=== PATIENT | female | born 1960 | race Caucasian/White ===

== ENCOUNTER 2016-09-16 17:32 | Emergency (ER) | payer MEDICARE ==
[2012-02-07 08:58] VITALS: BMI 37.2
[2016-09-16 18:20] LABS: HEMATOCRIT 39.6 % (36.0-48.0); HEMOGLOBIN 13.1 g/dL (12-16); MCH 30.7 pg (26.0-34.0); MCHC 33.1 g/dL (31.0-37.0); MCV 92.7 fL (80.0-100.0); MEAN PLATELET VOLUME 10.6 fL (7.4-10.4); PLATELET COUNT 342 10x3/uL (130-400); RBC 4.27 10x6/uL (4.00-5.40); RDW 16.1 % (11.5-14.5); WBC 39.2 10x3/uL (4.8-10.8)
[2016-09-16 18:34] LABS: ALBUMIN 3.2 g/dL (3.4-5.0); ALKALINE PHOSPHATASE 78 U/L (46-116); ALT (SGPT) 46 U/L (10-68); AMYLASE - SERUM 32 U/L (25-115); BILIRUBIN - TOTAL 0.51 mg/dL (0.2-1.3); CALC OSMOLALITY 284 mosm/kg (275-300); CARBON DIOXIDE 27.2 mmol/L (21.0-32.0); CHLORIDE - SERUM 107 mmol/L (98-107); CREATININE - SERUM 0.8 mg/dL (0.6-1.3); GLUCOSE 107 mg/dL (74-106); LIPASE 58 U/L (73-393); POTASSIUM - SERUM 3.6 mmol/L (3.5-5.1); PROTEIN - SERUM 6.3 g/dL (6.4-8.2); SODIUM 143 mmol/L (136-145); UREA NITROGEN 13 mg/dL (7-18); eGFR NON AFRICAN AMERICAN 78 mL/min (90-120)
[2016-09-16 18:36] LABS: CALCIUM 8.7 mg/dL (8.5-10.1)
[2016-09-16 18:45] LABS: LYMPHOCYTES 4 % (15-50); NEUTROPHILS 93 % (40-80); PLATELET ESTIMATE NORMAL
== END 2016-09-16 20:30 | disposition home or self-care (01) ==
LOC: D.ER 17:32
PROVIDERS: Emergency Medicine
DX: R11.2 Nausea with vomiting, unspecified (principal); Z76.89 Persons encountering health services in other specified circumstances; C79.9 Secondary malignant neoplasm of unspecified site; C50.919 Malignant neoplasm of unspecified site of unspecified female breast

== ENCOUNTER → 2017-11-19 09:07 | Outpatient (CLI) | payer OTHER ==
[2012-02-07 08:58] VITALS: BMI 37.2
== END | disposition home or self-care (01) ==
LOC: D.CT 09:07
DX: C50.411 Malignant neoplasm of upper-outer quadrant of right female breast (principal)

== ENCOUNTER 2018-01-10 19:38 | Emergency (ER) | payer OTHER ==
[2012-02-07 08:58] VITALS: BMI 37.2
[2018-01-10 20:05] LABS: BASOPHILS 0.2 % (0-2); EOSINOPHILS 1.1 % (0-7); HEMATOCRIT 41.3 % (36.0-48.0); HEMOGLOBIN 14.6 g/dL (12-16); IMMATURE GRANULOCYTES 0.2 % (0-5); LYMPHOCYTES 33.2 % (15-50); MCH 31.9 pg (26.0-34.0); MCHC 35.4 g/dL (31.0-37.0); MCV 90.2 fL (80.0-100.0); MEAN PLATELET VOLUME 10.1 fL (7.4-10.4); MONOCYTES 4.8 % (2-11); NEUTROPHILS 60.5 % (40-80); RBC 4.58 10x6/uL (4.00-5.40); RDW 15.1 % (11.5-14.5); WBC 12.2 10x3/uL (4.8-10.8)
[2018-01-10 20:08] LABS: PLATELET COUNT 234 10x3/uL (130-400)
[2018-01-10 20:34] LABS: ALBUMIN 3.4 g/dL (3.4-5.0); ALKALINE PHOSPHATASE 91 U/L (46-116); ALT (SGPT) 22 U/L (10-68); CALC OSMOLALITY 285 mosm/kg (275-300); CALCIUM 9.4 mg/dL (8.5-10.1); CARBON DIOXIDE 27.1 mmol/L (21.0-32.0); CHLORIDE - SERUM 107 mmol/L (98-107); CREATININE - SERUM 0.8 mg/dL (0.6-1.3); GLUCOSE 111 mg/dL (74-106); POTASSIUM - SERUM 3.7 mmol/L (3.5-5.1); PROTEIN - SERUM 6.7 g/dL (6.4-8.2); SODIUM 142 mmol/L (136-145); UREA NITROGEN 17 mg/dL (7-18); eGFR NON AFRICAN AMERICAN 78 mL/min (90-120)
[2018-01-10 20:45] LABS: APTT 29.4 SECONDS (22.8-39.4); CKMB 0.8 U/L (0.0-3.6); CREATINE KINASE 43 UL (21-215); INR 0.99 (0.85-1.17); PROTIME 12.7 SECONDS (11.6-15.0); TROPONIN-I < 0.017 ng/mL (0.000-0.060)
[2018-01-10 20:46] LABS: D-DIMER-QUANTITATIVE 0.46 ug/mLFEU (0.20-0.54)
== END 2018-01-10 23:29 | disposition home or self-care (01) ==
LOC: D.ER 19:38
PROVIDERS: Family Medicine
DX: J02.9 Acute pharyngitis, unspecified (principal); M79.1 Myalgia; Z85.3 Personal history of malignant neoplasm of breast

== ENCOUNTER → 2018-04-05 11:13 | Outpatient (CLI) | payer OTHER ==
[2012-02-07 08:58] VITALS: BMI 37.2
== END | disposition home or self-care (01) ==
LOC: D.US 11:13
DX: R10.9 Unspecified abdominal pain (principal); N39.0 Urinary tract infection, site not specified

== ENCOUNTER → 2018-11-18 08:14 | Outpatient (CLI) | payer OTHER ==
[2012-02-07 08:58] VITALS: BMI 37.2
== END | disposition home or self-care (01) ==
LOC: D.CT 07-22 12:00
PROVIDERS: ATTEND Legal Medicine
DX: C50.411 Malignant neoplasm of upper-outer quadrant of right female breast (principal)

== ENCOUNTER 2020-01-20 20:48 | Emergency (ER) | payer OTHER ==
[~2020-01-20] VITALS: Ht 157.5 cm; Wt 102.3 kg
[2020-01-20 21:00] VITALS: Ht 157.5 cm; Wt 102.3 kg
[2020-01-20] MEDS ORDERED: ZYRTEC10 MG PO (21:01)
[2020-01-20] MEDS ORDERED: FLUTICASONE PRO16 GM NASAL (21:02)
[2020-01-20 22:17] LABS: BASOPHILS 0.1 % (0-2); EOSINOPHILS 0.2 % (0-7); HEMATOCRIT 45.6 % (36.0-48.0); HEMOGLOBIN 14.9 g/dL (12-16); IMMATURE GRANULOCYTES 0.4 % (0-5); LYMPHOCYTES 9.2 % (15-50); MCHC 32.7 g/dL (31.0-37.0); MCV 91.9 fL (80.0-100.0); MEAN PLATELET VOLUME 9.6 fL (7.4-10.4); MONOCYTES 0.5 % (2-11); NEUTROPHILS 89.6 % (40-80); PLATELET COUNT 251 10x3/uL (130-400); RBC 4.96 10x6/uL (4.00-5.40); RDW 14.7 % (11.5-14.5); WBC 11.1 10x3/uL (4.8-10.8)
[2020-01-20 22:26] LABS: APTT 26.5 SECONDS (22.8-39.4); INR 0.99 (0.85-1.17)
[2020-01-20 22:28] LABS: CALC OSMOLALITY 282 mosm/kg (275-300); CALCIUM 8.9 mg/dL (8.5-10.1); CARBON DIOXIDE 28.4 mmol/L (21.0-32.0); CHLORIDE - SERUM 105 mmol/L (98-107); GLUCOSE 112 mg/dL (74-106); POTASSIUM - SERUM 3.7 mmol/L (3.5-5.1); SODIUM 141 mmol/L (136-145); UREA NITROGEN 15 mg/dL (7-18); eGFR NON AFRICAN AMERICAN 60 mL/min (90-120)
[2020-01-20 22:44] LABS: ALBUMIN 3.6 g/dL (3.4-5.0); ALKALINE PHOSPHATASE 98 U/L (30-120); ALT (SGPT) 28 U/L (10-68); AMYLASE - SERUM 55 U/L (25-115); BILIRUBIN - TOTAL 0.21 mg/dL (0.2-1.3); CKMB 0.4 U/L (0.0-3.6); CREATINE KINASE 55 UL (21-215); LIPASE 105 U/L (73-393); PRO BNP 35 pg/mL (0-125); PROTEIN - SERUM 6.9 g/dL (6.4-8.2)
[2020-01-20 22:45] LABS: TROPONIN-I < 0.017 ng/mL (0.000-0.060)
[2020-01-20 23:41] LABS: BACTERIA FEW /hpf (NEGATIVE); BILIRUBIN NEGATIVE (NEGATIVE); EPITHELIAL CELLS 0-5 /hpf (0-5); GLUCOSE NEGATIVE (NEGATIVE); KETONE NEGATIVE (NEGATIVE); NITRITE NEGATIVE (NEGATIVE); RED CELLS - URINE 0-5 /hpf (0-5); SPECIFIC GRAVITY 1.025 (1.005-1.020); UROBILINOGEN NORMAL (NORMAL); WHITE CELLS - URINE 0-5 /hpf (NEGATIVE)
[2020-01-21] MEDS ORDERED: ZOFRAN ODT4 MG/UDTAB PO (01:08)
[2020-01-21 02:00] VITALS: BP 91/53
== END 2020-01-21 02:00 | disposition home or self-care (01) ==
LOC: D.ER 20:48
PROVIDERS: Family Medicine
DX: R11.2 Nausea with vomiting, unspecified (principal); R10.9 Unspecified abdominal pain; E86.0 Dehydration; R51 Headache; R19.7 Diarrhea, unspecified

== ENCOUNTER → 2020-05-28 08:11 | Outpatient (CLI) | payer OTHER ==
[2020-01-20 21:00] VITALS: BMI 41.2
[~2020-05-28 08:11] MED LIST: FLUTICASONE PRO16 GM NASAL; ZOFRAN ODT4 MG/UDTAB PO; ZYRTEC10 MG PO
== END | disposition home or self-care (01) ==
LOC: D.US 08:11
PROVIDERS: ATTEND Family Medicine
DX: R31.9 Hematuria, unspecified (principal)